=== PATIENT | female | born 1960 | race Caucasian/White ===

== ENCOUNTER 2019-04-16 06:39 | Emergency (ER) | payer BC, MEDICARE ==
[~2019-04-16] VITALS: Ht 157.5 cm; Wt 95.7 kg
[~2019-04-16 06:39] MED LIST: BACLOFEN; ESTRADIOL; HYDROCODONE-AP1 EAC6 PO; PROMETRIUM; PROZAC; TEMAZEPAM; TRAZODONE
[2019-04-16] MEDS ORDERED: CARISOPRODOL 3350 MG (06:56)
[2019-04-16] MEDS ORDERED: ATENOLOL 25 MG25 M1 PO (06:57)
[2019-04-16] MEDS ORDERED: FLONASE 0.05%50 MCG NASAL (06:57)
[2019-04-16] MEDS ORDERED: RESTORIL30 MG PO (06:58)
[2019-04-16] MEDS ORDERED: PROMETRIUM100 MG PO (06:58)
[2019-04-16] MEDS ORDERED: XANAX 0.5 MG0.5 MG PO (06:58)
[2019-04-16] MEDS ORDERED: VOLTAREN GEL 1100 GM TOP (06:59)
[2019-04-16] MEDS ORDERED: VITAMIN B-1100 M1 PO (06:59)
[2019-04-16] MEDS ORDERED: HYDROCODON-ACE1 EAC7 PO (07:56)
[2019-04-16 08:00] VITALS: BP 103/62
== END 2019-04-16 08:00 | disposition home or self-care (01) ==
LOC: M.ERS 06:39
DX: R51 Headache (principal); M79.7 Fibromyalgia; M19.90 Unspecified osteoarthritis, unspecified site; Z90.710 Acquired absence of both cervix and uterus; Z96.641 Presence of right artificial hip joint; Z90.721 Acquired absence of ovaries, unilateral; Z96.653 Presence of artificial knee joint, bilateral; Z88.6 Allergy status to analgesic agent; Z88.1 Allergy status to other antibiotic agents; Z88.2 Allergy status to sulfonamides; Z88.8 Allergy status to other drugs, medicaments and biological substances

== ENCOUNTER 2020-11-03 09:02 | Emergency (ER) | payer BC, MEDICARE ==
[~2020-11-03] VITALS: Ht 157.5 cm; Wt 99.8 kg
[~2020-11-03 09:02] MED LIST changes: +ATENOLOL 25 MG25 M1 PO; +CARISOPRODOL 3350 MG; +FLONASE 0.05%50 MCG NASAL; +HYDROCODON-ACE1 EAC7 PO; +PROMETRIUM100 MG PO; +RESTORIL30 MG PO; +VITAMIN B-1100 M1 PO; +VOLTAREN GEL 1100 GM TOP; +XANAX 0.5 MG0.5 MG PO
[2020-11-03 09:32] LABS: ABSOLUTE EOSINOPHILS 0.1 thou/uL (0.0-0.7); ABSOLUTE MONOCYTES 0.4 thou/uL (0.0-1.2); ABSOLUTE NEUTROPHILS 2.8 thou/uL (1.6-8.1); EOSINOPHILS 1.4 %; HEMATOCRIT 43.6 % (37.0-47.0); HEMOGLOBIN 14.6 gm/dL (12.0-15.0); LYMPHOCYTES 22.5 %; MCH 30.6 pg (26.0-34.0); MCHC 33.6 g/dL (28.0-37.0); MCV 91.2 fL (80.0-100.0); MONOCYTES 10.5 %; MPV 7.2 fl. (7.2-11.1); NUCLEATED RBCS 0 /100WBC; PLATELET COUNT* 236 thou/uL (150-400); POLYS 64.6 %; RBC 4.78 mil/uL (4.20-5.00); RDW-CV 15.2 % (10.5-14.5); WBC 4.3 thou/uL (4.0-11.0)
[2020-11-03 09:43] LABS: CALCIUM 9.9 mg/dL (8.5-10.1); CREATININE 0.9 mg/dL (0.6-1.3); POTASSIUM 3.5 mmol/L (3.5-5.1)
[2020-11-03 09:47] LABS: ALBUMIN 3.5 g/dL (3.4-5.0); TOTAL BILIRUBIN 0.4 mg/dL (<0.1-1.0); TOTAL PROTEIN 7.3 g/dL (6.4-8.2)
[2020-11-03 09:54] LABS: URINE BILIRUBIN NEGATIVE (Negative); URINE BLOOD TRACE (Negative); URINE CLARITY CLEAR; URINE COLOR YELLOW; URINE GLUCOSE-RANDOM NEGATIVE (Negative); URINE KETONES NEGATIVE (Negative); URINE LEUKOCYTES-REFLEX NEGATIVE (Negative); URINE NITRITE-REFLEX NEGATIVE (Negative); URINE PROTEIN NEGATIVE (Negative); URINE SPECIFIC GRAVITY <= 1.005 (1.005-1.030); URINE UROBILINOGEN 0.2 E.U./dl (0.2-1.0)
[2020-11-03 11:05] VITALS: BP 141/70
== END 2020-11-03 11:05 | disposition home or self-care (01) ==
LOC: M.ERS 09:02
PROVIDERS: Emergency Medicine
DX: R41.0 Disorientation, unspecified (principal); M79.7 Fibromyalgia; M19.90 Unspecified osteoarthritis, unspecified site; Z88.6 Allergy status to analgesic agent; Z88.1 Allergy status to other antibiotic agents; Z88.5 Allergy status to narcotic agent; Z88.2 Allergy status to sulfonamides; Z79.899 Other long term (current) drug therapy; Z96.653 Presence of artificial knee joint, bilateral; Z90.710 Acquired absence of both cervix and uterus; Z98.890 Other specified postprocedural states